=== PATIENT | male | born 1980 | race Caucasian/White ===

== ENCOUNTER 2018-11-16 00:10 | Emergency (ER) | payer OTHER ==
[~2018-11-16] VITALS: Ht 172.7 cm; Wt 75.0 kg
[2018-11-16] MEDS ORDERED: FLUORESCEIN SODIUM 1MG/STRIP OP ONE (02:30)
[2018-11-16] MEDS ORDERED: TETRACAINE 0.5% OPHTH DROPS 4ML OP ONE (02:30)
[2018-11-16 03:19] VITALS: BP 127/75
== END 2018-11-16 03:10 | disposition home or self-care (01) ==
LOC: ER 00:10
DX: S05.02XA Injury of conjunctiva and corneal abrasion without foreign body, left eye, initial encounter (principal); F15.10 Other stimulant abuse, uncomplicated; W50.0XXA Accidental hit or strike by another person, initial encounter; Y93.89 Activity, other specified; Y92.89 Other specified places as the place of occurrence of the external cause; Y99.8 Other external cause status
CPT/HCPCS: 99283

== ENCOUNTER 2019-04-15 13:39 | Emergency (ER) | payer OTHER ==
[~2019-04-15] VITALS: Ht 172.7 cm; Wt 77.0 kg
[2019-04-15 13:57] VITALS: BP 136/82
[2019-04-15] MEDS ORDERED: IBUPROFEN 600MG TABLET PO ONE (15:30)
== END 2019-04-15 16:50 | disposition home or self-care (01) ==
LOC: ER 13:51
DX: S62.304A Unspecified fracture of fourth metacarpal bone, right hand, initial encounter for closed fracture (principal); S62.306A Unspecified fracture of fifth metacarpal bone, right hand, initial encounter for closed fracture; S63.501A Unspecified sprain of right wrist, initial encounter; F15.10 Other stimulant abuse, uncomplicated; Y04.0XXA Assault by unarmed brawl or fight, initial encounter; Y93.89 Activity, other specified; Y92.89 Other specified places as the place of occurrence of the external cause; Y99.8 Other external cause status
CPT/HCPCS: 73130; 99283

== ENCOUNTER 2019-05-15 07:50 | Emergency (ER) | payer OTHER ==
[~2019-05-15] VITALS: Ht 170.2 cm; Wt 83.0 kg
[2019-05-15 07:53] VITALS: BP 133/88
[2019-05-15] MEDS ORDERED: HYDROCODONE/ACETAMINOPHEN 5/325MG TABLET PO ONE (08:15)
== END 2019-05-15 08:31 | disposition home or self-care (01) ==
LOC: ER 08:04
DX: S62.306A Unspecified fracture of fifth metacarpal bone, right hand, initial encounter for closed fracture (principal); S62.304A Unspecified fracture of fourth metacarpal bone, right hand, initial encounter for closed fracture; F15.10 Other stimulant abuse, uncomplicated; Y08.89XA Assault by other specified means, initial encounter; Y93.89 Activity, other specified; Y92.89 Other specified places as the place of occurrence of the external cause; Y99.8 Other external cause status
CPT/HCPCS: 29125; 99283